=== PATIENT | female | born 1950 | race African-American/Black ===

== ENCOUNTER 2020-07-01 07:35 | Day surgery (SDC) | payer MEDICARE ==
[2020-06-28 11:57] VITALS: BMI 51.5
[2020-07-01] MEDS ORDERED: Lidocaine 1% MPF 2 ML VIAL ONE (08:45)
[2020-07-01] MEDS ORDERED: PROPOFOL 40 ML ONE (09:27)
[2020-07-01] MEDS ORDERED: PHENYLEPHRINE-NS 100 MCG/ML 10 ML SYRINGE ONE (09:55)
== END 2020-07-01 10:45 | disposition home or self-care (01) ==
LOC: CSHSDC 07:35
PROVIDERS: ATTEND Internal Medicine Gastroenterology
DX: Z12.11 Encounter for screening for malignant neoplasm of colon (principal); D12.3 Benign neoplasm of transverse colon; K57.30 Diverticulosis of large intestine without perforation or abscess without bleeding; K64.9 Unspecified hemorrhoids
CPT/HCPCS: 88305; J2704